=== PATIENT | female | born 2005 | race African-American/Black ===

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

== ENCOUNTER 2023-05-12 10:28 | Observation (INO) | payer MEDICAID ==
[~2023-05-12] VITALS: Ht 154.9 cm; Wt 80.7 kg
[2023-05-12 11:44] LABS: Urine Bacteria NONE SEEN /hpf (None Seen); Urine Blood Negative /uL (Negative); Urine Budding Yeast MANY /hpf (None Seen); Urine Specific Gravity 1.024 (1.001-1.035); Urine WBC 37 /hpf (0 - 5); Urine WBC Clumps PRESENT /hpf (None Seen)
[2023-05-12 11:47] LABS: Alcohol, Urine < 3.0 mg/dL (0-10); Amphetamine Screen, Urine NEGATIVE (NEGATIVE); Barbiturate Scree,Urine NEGATIVE (NEGATIVE); Benzodiazephine Screen, Urine NEGATIVE (NEGATIVE); Cannabinoid Screen, Urine POSITIVE (NEGATIVE)
[2023-05-12 11:49] LABS: Basophils # (auto) 0 10 ^3/uL (0-0.2); Basophils % (auto) 0.6 % (0.0-2.0); Eosinophils # (auto) 0 10 ^3/uL (0-0.8); Eosinophils % (auto) 0.8 % (0.0-7.0); Hematocrit 36.9 % (36.0-46.0); Hemoglobin 12.5 g/dL (12.2-16.2); Lymphocytes # (auto) 1.7 10 ^3/uL (0.4-5.4); Lymphocytes % (auto) 30.6 % (10.0-50.0); Mean Corpuscular Hemoglobin 31.2 pg (28.0-32.0); Mean Corpuscular Hgb Conc. 33.8 g/dL (32.0-36.0); Mean Corpuscular Volume 92.3 fL (80.0-100.0); Monocytes # (auto) 0.4 10 ^3/uL (0-1.3); Monocytes % (auto) 7.4 % (0.0-12.0); Neutrophils # (auto) 3.4 10 ^3/uL (1.6-8.6); Neutrophils % (auto) 60.6 % (37.0-80.0); Red Cell Distribution Width 13.7 % (11.8-14.3); White Blood Cell 5.5 10^3/uL (4.4-10.8)
[2023-05-12 11:55] LABS: Cocaine Screen, Urine NEGATIVE (NEGATIVE); Opiate Scree,Urine NEGATIVE (NEGATIVE); Phencyclidine Screen, Urine NEGATIVE (NEGATIVE)
[2023-05-12 12:06] LABS: Albumin 2.5 g/dL (3.4-5.0); Calcium 8.6 mg/dL (8.5-10.1); Potassium 3.7 mmol/L (3.5-5.1)
[2023-05-12 12:11] LABS: Bilirubin, Total 0.3 mg/dL (0.2-1.0); Total Protein 6.7 g/dL (6.4-8.2)
[2023-05-12] MEDS ORDERED: LACTATED RINGER'S 1,000 ML IV ONE ×2 (13:00→14:00)
[2023-05-12] MEDS ORDERED: ONDANSETRON HCL 4 MG/2 ML VIAL IV PRN (13:00)
[2023-05-12] MEDS ORDERED: HYDROcodone-ACET 5/325MG TAB PO PRN (13:00)
[2023-05-12] MEDS ORDERED: BUTORPHANOL TARTRATE 2 MG/1 ML VIAL IM ONE (14:00)
[2023-05-12] MEDS ORDERED: hydrALAZINE HCL 20 MG/ML VL IV PRN (14:00)
[2023-05-12] MEDS ORDERED: NALBUPHINE HCL 10 MG/1ml INJECTION IM PRN ×2 (14:00→14:30)
[2023-05-12] MEDS ORDERED: NALBUPHINE HCL 10 MG/1ml INJECTION ONE (14:02)
[2023-05-12 14:41] LABS: Protein, Urine 74.3 mg/dL (0.0-11.9)
[2023-05-12 18:20] LABS: INR 0.93 (0.9-1.15)
[2023-05-13 07:07] LABS: RPR Non Reactive (Non Reactive); Rubella Antibodies, IgG 6.49 index (Immune >0.99)
== END 2023-05-12 15:14 | disposition home or self-care (01) ==
LOC: LDRP 10:28 → UNDOADMOB 10:28 → LDRP 10:53 → UNDODISOB 13:10
PROVIDERS: ADMIT Obstetrics & Gynecology; ATTEND Obstetrics & Gynecology
DX: O14.93 Unspecified pre-eclampsia, third trimester (principal); O99.891 Other specified diseases and conditions complicating pregnancy; M54.50 Low back pain, unspecified; O26.893 Other specified pregnancy related conditions, third trimester; R10.9 Unspecified abdominal pain; R10.2 Pelvic and perineal pain; Z3A.35 35 weeks gestation of pregnancy
CPT/HCPCS: 36415; 59025; 76775; 76805; 76817; 80053; 80307; 81001; 81002; 82570; 82575; 84156; 84550; 85025; 85384; 85610; 85730; 86592; 86762; 86850; 86900; 86901; 87086; 87340; 87491; 87591; 94760; 96361; 96374; G0378; J2300; J2405; 96360; 96375